=== PATIENT | female | born 1995 | race Caucasian/White ===

== ENCOUNTER 2023-08-21 19:57 | Inpatient (IN) | payer BC ==
[2023-08-21] MEDS: Methylergonovine 0.2 MG/ML VIAL ONE (20:24)
[2023-08-21 20:36] LABS: Analyzer IN Cardio CS NICU; Critical Notified By: CP.PH; Critical Notified Whom: NUR.SCI5; RapidComm Collect By CBN; pH (Cord, venous) 7.006 (7.250-7.350)
[2023-08-21 20:38] LABS: Analyzer IN Cardio CS NICU; Critical Notified By: CP.PH; Critical Notified Whom: NUR.SCI5; RapidComm Collect By CBN
[2023-08-21] MEDS ORDERED: traMADol HCl 50 MG TAB PO PRN (20:52)
[2023-08-21] MEDS ORDERED: Ondansetron PF 4 MG/2 ML Vial IVP PRN (20:52)
[2023-08-21] MEDS ORDERED: Milk Of Magnesia 30 ML UDCUP PO PRN (20:52)
[2023-08-21] MEDS ORDERED: Bisacodyl 10 MG SUPP PR PRN (20:52)
[2023-08-21] MEDS ORDERED: hydrALAZINE 20 MG/ML VIAL SLOW IVP PRN (20:52)
[2023-08-21 20:57] VITALS: BMI 31.6
[2023-08-21 22:17] LABS: #Basophils 0.03 10x3/uL (0.0-0.2); #Eosinphils 0.22 10x3/uL (0.0-0.5); #Monocytes 1.02 10x3/uL (0.0-1.1); #Neutrophils 19.39 10x3/uL (1.5-8.4); %Basophils 0.1 % (0.0-2.0); %Lymphocytes 5.3 % (18.0-47.0); %Monocytes 4.6 % (0.0-10.0); %Neutrophils 88.1 % (40.0-75.0); Hemoglobin 13.5 g/dL (12.0-15.5); Mean Corpuscular HGB CONC 35.5 g/dL (32.0-36.0); Mean Platelet Volume 10.7 fL (7.4-10.4); Platelet Count 234 10x3/uL (150-450); RBC Distribution Width 12.5 % (11.5-14.5); Red Blood Cell (RBC) Count 4.22 10x6/uL (3.90-5.03)
[2023-08-21 22:37] LABS: Syphilis Antibody Nonreactive (Nonreactive); Syphilis Antibody Index 0.61 S/CO (<1.00 Non-Reactive)
[2023-08-21 22:38] LABS: HIV (1/2) Antibody/Antigen Non-Reactive (NonReactive); HIV 1/2 INDEX 0.07 S/CO (<1.00)
[2023-08-21] MEDS: Ibuprofen 800 MG TAB PO SCH (22:40)
[2023-08-21 22:48] LABS: HBsAg Index 0.18 S/CO (0-0.99); Hep B Surf Ag - L&D Non-Reactive S/CO (NonReactive)
[2023-08-21] MEDS: Lidocaine 1% (PF) 30 ML VIAL ONE (23:47)
[2023-08-21] MEDS: Docusate 100 MG CAP PO SCH (23:47)
[2023-08-22] MEDS: Boostrix 0.5 ML (Tdap) VIAL (>/=7 yrs of age) IM ONE (08:13)
[2023-08-22] MEDS: Ferrous Sulfate 325 MG TAB PO SCH (08:13)
[2023-08-23 08:56] VITALS: BP 106/55; TEMP 98.1
== END 2023-08-23 11:30 | disposition home or self-care (01) | DRG 807 ==
LOC: CSHLD/OP 19:57 → CSHLD 20:20 → CSHPP 23:00
PROVIDERS: ADMIT Obstetrics & Gynecology; ATTEND Obstetrics & Gynecology
PROC: 10E0XZZ Delivery of Products of Conception, External Approach (ICD-10-PCS; principal; 2023-08-21)
DX: O77.0 Labor and delivery complicated by meconium in amniotic fluid (principal); Z37.0 Single live birth; O70.0 First degree perineal laceration during delivery; O48.0 Post-term pregnancy; Z3A.40 40 weeks gestation of pregnancy
CPT/HCPCS: 36415; 82805; 85025; 86762; 86780; 86900; 86901; 87340; 87389; J2001; J2210